=== PATIENT | female | born 1965 | race Caucasian/White ===

== ENCOUNTER 2020-06-09 18:04 | Observation (INO) ==
[2020-06-09 18:57] LABS: Hematocrit 41.7 % (35.3-44.9); Hemoglobin 14.2 g/dL (11.5-15.4); Mean Corpuscular HGB Conc 34.1 g/dL (31.6-35.5); Mean Platelet Volume 12.1 fL (9.4-12.4); Platelet Count 215 K/mcL (140-400); Red Blood Count 4.58 M/mcL (3.82-4.97); Red Cell Distribution Width 13.2 % (11.5-14.5); White Blood Count 11.5 K/mcL (4.3-11.1)
[2020-06-09 19:16] LABS: BUN/Creatinine Ratio 11 (6-26); Blood Urea Nitrogen 8 mg/dL (6-20); Calcium 9.1 mg/dL (8.6-10.3); Carbon Dioxide 25 mEq/L (23-29); Chloride 103 mEq/L (98-107); Glucose 161 mg/dL (70-105); Osmolality,Calculated 290 (280-300); Potassium 3.1 mEq/L (3.5-5.1); Sodium 139 mEq/L (136-145); eGFR For African Americans > 60 (> 60); eGFR For Non-African Americans > 60 (> 60)
[2020-06-09] MEDS ORDERED: Ondansetron 4 MG/2 ML VIAL IVP ONE (19:21)
[2020-06-09] MEDS ORDERED: Vancomycin 1,250 MG/262.5 ML IV.SOLN IVPB ONE (19:21)
[2020-06-09] MEDS ORDERED: *HR* FentaNYL (PF) 100 MCG/2 ML VIAL IVP STA (19:21)
[2020-06-09] MEDS ORDERED: Lidocaine 1% 20 ML MDV INFILT STA (19:59)
[2020-06-09] MEDS ORDERED: 0.9 % Sodium Chloride 1,000 ML IVC ONE (20:13)
[2020-06-09] MEDS ORDERED: Naloxone 0.4 MG/ML INJ IVP PRN (21:14)
[2020-06-09] MEDS ORDERED: *HR* Promethazine 25 MG/ML VIAL IVP PRN (21:14)
[2020-06-09] MEDS ORDERED: Acetaminophen 325 MG TABLET PO PRN (21:14)
[2020-06-09] MEDS ORDERED: D5% in Water 1,000 ML IVC PRN (22:07)
[2020-06-09] MEDS ORDERED: Dextrose Gel 15 GM/37.5 ML TUBE PO PRN ×2 (22:07)
[2020-06-09] MEDS ORDERED: *HR* Dextrose 50 % in Water (Vial) 50 ML VIAL IVP PRN (22:07)
[2020-06-09] MEDS: Piperacillin/Tazobactam 3.375 GM in 0.9 % Sodium Chloride Mini Bag 100 ML IVPB SCH (23:01)
[2020-06-09] MEDS: Insulin LISPRO 300 UNITS/3 ML VIAL SQ SCH (23:04)
[2020-06-09] MEDS: 0.9 % Sodium Chloride 1,000 ML IVC SCH (23:05)
[2020-06-10 00:47] LABS: Basophils % 0.3 %; Eosinophils # 0.1 K/mcL (0.0-0.6); Eosinophils % 0.5 %; Hematocrit 37.2 % (35.3-44.9); Hemoglobin 12.9 g/dL (11.5-15.4); Immature Granulocytes % 0.3 % (0-4); Lymphocytes # 2.3 K/mcL (0.6-4.6); Lymphocytes % 19.5 %; Mean Corpuscular HGB Conc 34.7 g/dL (31.6-35.5); Mean Corpuscular Hemoglobin 32.7 pg (28.0-33.3); Mean Corpuscular Volume 94.2 fL (83.0-100.0); Mean Platelet Volume 11.9 fL (9.4-12.4); Monocytes # 0.6 K/mcL (0.0-1.3); Monocytes % 4.8 %; Neutrophils # 8.6 K/mcL (1.6-8.9); Platelet Count 264 K/mcL (140-400); Red Blood Count 3.95 M/mcL (3.82-4.97); Red Cell Distribution Width 13.2 % (11.5-14.5); Segmented Neutrophils % 74.6 %; White Blood Count 11.6 K/mcL (4.3-11.1)
[2020-06-10 00:56] LABS: INR 1.1; Prothrombin Time 12.2 Seconds (9.4-12.1)
[2020-06-10 01:04] LABS: BUN/Creatinine Ratio 10 (6-26); Blood Urea Nitrogen 9 mg/dL (6-20); Calcium 8.3 mg/dL (8.6-10.3); Carbon Dioxide 26 mEq/L (23-29); Chloride 107 mEq/L (98-107); Glucose 159 mg/dL (70-105); Magnesium 1.7 mg/dL (1.6-2.6); Osmolality,Calculated 294 (280-300); Phosphorous 2.7 mg/dL (2.7-4.5); Potassium 3.2 mEq/L (3.5-5.1); Sodium 141 mEq/L (136-145); eGFR For African Americans > 60 (> 60); eGFR For Non-African Americans > 60 (> 60)
[2020-06-10] MEDS: *HR* HYDROcodone/Acet 5/325 mg TABLET PO PRN ×3 (03:49→20:30)
[2020-06-10 07:45] LABS: Estimated Average Glucose 148 mg/dl
[2020-06-10] MEDS: Insulin LISPRO 300 UNITS/3 ML VIAL SQ SCH ×3 (08:59→16:33)
[2020-06-10] MEDS: BuPROPion SR (12 HR) 150 MG TABLET PO SCH ×2 (09:03→20:29)
[2020-06-10] MEDS: Morphine Sulfate 2 MG/ML SYRINGE IVP PRN ×2 (09:03→22:10)
[2020-06-10] MEDS: Piperacillin/Tazobactam 3.375 GM in 0.9 % Sodium Chloride Mini Bag 100 ML IVPB SCH ×2 (09:06→16:36)
[2020-06-10] MEDS: Vancomycin 1,250 MG/262.5 ML IV.SOLN IVPB SCH ×2 (09:06→22:09)
[2020-06-10] MEDS: 0.9 % Sodium Chloride 1,000 ML IVC SCH (09:12)
[2020-06-10] MEDS: Potassium Chloride Elixir 20 MEQ/15 ML UDC PO SCH ×2 (14:34→17:32)
[2020-06-11] MEDS: Piperacillin/Tazobactam 3.375 GM in 0.9 % Sodium Chloride Mini Bag 100 ML IVPB SCH ×2 (01:10→09:08)
[2020-06-11] MEDS: Morphine Sulfate 2 MG/ML SYRINGE IVP PRN (06:45)
[2020-06-11] MEDS: BuPROPion SR (12 HR) 150 MG TABLET PO SCH (09:08)
[2020-06-11] MEDS: Vancomycin 1,250 MG/262.5 ML IV.SOLN IVPB SCH (09:09)
[2020-06-11] MEDS: Insulin LISPRO 300 UNITS/3 ML VIAL SQ SCH (09:10)
[2020-06-11 11:21] VITALS: BP 147/75
== END 2020-06-11 12:10 | disposition home or self-care (01) ==
LOC: 3NENU 18:04 → EMEROOARM 18:04 → 3NENU 21:07
PROVIDERS: ADMIT Student in an Organized Health Care Education/Training Program; ATTEND Student in an Organized Health Care Education/Training Program